=== PATIENT | female | born 2000 ===

== ENCOUNTER 2021-12-24 13:16 | Emergency (ER) | payer OTHER ==
[2021-12-24 14:23] VITALS: BP 146/103
[2021-12-24] MEDS ORDERED: TETANUS,DIPH,PERTUSS(ACELL) VACCINE 0.5 ML SYRINGE IM ONE (16:37)
[2021-12-24] MEDS ORDERED: KETOROLAC 10 MG TAB PO ONE (16:37)
--- NOTE | 2021-12-24 17:17 | XRay Report ---
Left foot, 3 views HISTORY: Injury COMPARISON: None FINDINGS: No acute fracture or malalignment. No significant arthritis. No radiopaque foreign body or other soft tissue abnormality. Signer Name: Biju Beard MD Signed: 12/24/2021 5:13 PM Workstation Name: [id number]
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
== END 2021-12-24 20:12 | disposition home or self-care (01) ==
LOC: ED 13:16
DX: S60.419A Abrasion of unspecified finger, initial encounter (principal); S90.812A Abrasion, left foot, initial encounter; V89.2XXA Person injured in unspecified motor-vehicle accident, traffic, initial encounter; Y93.89 Activity, other specified; Y92.89 Other specified places as the place of occurrence of the external cause; Y99.8 Other external cause status
CPT/HCPCS: 90471; 90715; 99283